=== PATIENT | female | born 2000 | race Hispanic/Latino ===

== ENCOUNTER 2021-11-10 22:00 | Emergency (ER) | payer OTHER ==
--- OUTSIDE RECORDS SUMMARY | 2021-11-10 22:04 | XMS REPORT | Continuity of Care Document ---
:2000 Author Organization [facility] t Address [address] [place] [address] Dr. Knutson [address] [place] [address] Care Team Providers Name Role Phone BEREKET HENLEY Primary Care Physician Unavailable Visit, Aliciachfortino Nurse Attending Clinician Unavailable Marvel Liu Attending Clinician MARVEL CROCKETT Attending Clinician Unavailable JHONATAN HILL Attending Clinician Unavailable Jhonatan Hill MD Attending Clinician FORTUNATO GAN Attending Clinician Unavailable Nurse, [facility] Attending Clinician Unavailable Fortunato Gan MD Attending Clinician Doctor Unassigned, Haskins Attending Clinician Unavailable Payers Payer Name Policy Type Policy Number Effective Date Expiration Date [facility] [id number] 2012 00:00:00 Problems Condition Condition Condition Status Onset Resolution Last Treating Co mments Source Name Details Category Date Date Treatment Clinician Date Encounter Encounter Disease Active 2019-02 Uni vers for for 0-05 [place] of 00 Medical injectable injectable Br anch contracept contracept nilson nilson Overweight Overweight Disease Active 2019-02 U nivers (BMI (BMI 0-05 ity of 25.0-29.9) 25.0-29.9[place] [facility] Screening Screening Disease Active Uni vers examinatio examinatio 09-19 it y of n for STD n [place] ST[place] ([place]ually (sexually 00 Medi kristen transmitte transmitte Br anch d disease) d disease) Depo-Prove Depo-Prove Disease Active U halina aldrich ra 09-19 [place] of [place]son status 00 Hi dical Branch Allergies, Adverse Reactions, Alerts Allergy Allergy Status Severity Reaction(s) Onset Inactive Treating Comm ents Source Name Type Date Date Clinician NO KNOWN Drug Active [facility] ALLERGIE Class ity of S [facility] Social History Social Habit Start Date Stop Date Quantity Comments Source Exposure to 2021-09-05 2021-09-15 Not sure [facility] SARS-CoV-2 00:00:00 11:19:00 [facility] (event) [place] Alcohol intake 2021-08-27 2021-08-27 0 /d [facility] 00:00:00 00:00:00 [facility] Tobacco use and 2017-11-13 2017-11-13 Smokeless tobacco Un iversity of exposure 00:00:00 00:00:00 non-user [facility] Sex Assigned At 2000 2000 Universit y of 00:00:00 00:00:00 [facility] [place] Smoking Status Start Date Stop Date Source Never smoked tobacco [facility] Medications Ordered Filled Start Stop Current Ordering Indication Dosage Frequency Signature Comments Components Source Medication Medication Date Date Medication? Clinician (SIG) Name Name acetaminoph 2021- No 1000mg 1,000 mg, Univers en 08-28 Oral, ity of (TYLENOL) 04:15: 04:20 [place]CE[place] tablet [place] :00 dose, On Medical 1,000 mg 08/27/21 Branc h at 2315, ANDER diphenhydrA 2021- No 25mg 25 mg, Uni vers MINE 08-28 Slow IV ity of (BENADRYL) 04:15: 04:21 Push, [place] injection 00 :00 ONCE, 1 Medical 25 mg dose, On Branch 08/27/21 at 2315, STAT metoclopram 2021- No 10mg 10 mg, Uni vers gi HCl 7-10 07-10 Slow IV ity of (REGLAN) 04:15: 04:21 Push, [place] injection 00 :00 ONCE, 1 Medical 10 mg dose, On Branch 08/27/21 at 2315, ANDER medroxyPROG 2020-02- No [id number] 150mg Univers ESTERone 2-28 -29 ity of (DEPO-PROVE 06:00: 05:59 [place] RA) 00 :00 Medical injection Branch 150 mg medroxyPROG 2020-02- No [id number] 150mg 150 mg, Univers ESTERone 2-28 11-29 Intramuscu ity of (DEPO-PROVE 06:00: 05:59 lar, [place] RA) 00 :00 [id number], Medical injection 4 doses, Branch 150 mg First dose on 02/15/21 at 0000, Last dose on 10/25/21 at 0000, Routine medroxyPROG 2020-02- No [id number] 150mg Univers ESTERone 2-28 11-29 ity of (DEPO-PROVE 06:00: 05:59 [place] RA) 00 :00 Medical injection Branch 150 mg medroxyPROG 2020-02- No [id number] 150mg Univers ESTERone 2-28 11-29 ity of (DEPO-PROVE 06:00: 05:59 [place] RA) 00 :00 Medical injection Branch 150 mg medroxyPROG 2020-02- No [id number] 150mg Univers ESTERone 2-28 11-29 ity of (DEPO-PROVE 06:00: 05:59 [place] RA) 00 :00 Medical injection Branch 150 mg medroxyPROG 2020-02- No [id number] 150mg Univers ESTERone 2-28 11-29 ity of (DEPO-PROVE 06:00: 05:59 [place] RA) 00 :00 Medical injection Branch 150 mg medroxyPROG 2020-02- No [id number] 150mg Univers ESTERone 2-28 11-29 ity of (DEPO-PROVE 06:00: 05:59 [place] RA) 00 :00 Medical injection Branch 150 mg medroxyPROG 2020-02- No [id number] 150mg 150 mg, Univers ESTERone 2-28 11-29 Intramuscu ity of (DEPO-PROVE 06:00: 05:59 mona, Todd ALDRICH) 00 :00 [id number], Medical injection 4 doses, Branch 150 mg First dose on Sun02/15/21 at 0000, Last dose on Sun10/25/21 at 0000, Routine MULTIVITAMI 2018-02 Yes Take by Uni vers N ORAL 0-02 mouth. ity of 14:44: [address] MULTIVITAMI 2018-02 Yes Take by Un zohaib N ORAL 0-02 mouth. ity of 14:44: [address] MULTIVITAMI 2018-02 Yes Take by Uni vers N ORAL 0-02 mouth. ity of 14:44: [address] MULTIVITAMI 2018-02 Yes Take by Uni vers N ORAL 0-02 mouth. ity of 14:44: [address] [facility] Yes Take by Uni vers N ORAL 0-02 mouth. ity of 14:44: [address] MULTIVITAMI 2018-02 Yes Take by Uni vers N ORAL 0-02 mouth. ity of 14:44: [address] Immunizations Ordered Filled Immunization Date Status Comments [facility] e Immunization Name Name [facility] 2021-08-11 Completed University of 00:00:00 [facility] 2021-08-11 Completed University of 00:00:00 [facility] 2021-08-11 Completed University of 00:00:00 [facility] HPV9 2021-08-11 Completed University of 00:00:00 [facility] HPV9 2021-04-06 Completed University of 00:00:00 [facility] HPV9 2021-04-06 Completed University of 00:00:00 [facility] HPV9 2021-04-06 Completed University of 00:00:00 [facility] HPV9 2021-04-06 Completed University of 00:00:00 [facility] HPV9 2021-04-06 Completed University of 00:00:00 [facility] HPV9 2021-04-06 Completed University of 00:00:00 [facility] TDAP 2016-09-19 Completed University of 00:00:00 [facility] HPV9 2016-09-19 Completed University of 00:00:00 [facility] TDAP 2016-09-19 Completed University of 00:00:00 [facility] 2016-09-19 Completed University of 00:00:00 [facility] Branch TDAP 2016-09-19 Completed University of 00:00:00 [facility] HPV9 2016-09-19 Completed University of 00:00:00 [facility] TDAP 2016-09-19 Completed University of 00:00:00 [facility] HPV9 2016-09-19 Completed University of 00:00:00 [facility] TDAP 2016-09-19 Completed University of 00:00:00 [facility] 2016-09-19 Completed University of 00:00:00 [facility] TDAP 2016-09-19 Completed University of 00:00:00 [facility] Branch [facility] 2016-09-19 Completed University of 00:00:00 [facility] Vital Signs Vital Name Observation Time Observation Value Comments Source Systolic blood 2021-08-28 04:25:00 134 mm[Hg] Univer sity of pressure [facility] Diastolic blood 2021-08-28 04:25:00 81 mm[Hg] Unive rsity of [facility] Heart rate 2021-08-28 04:25:00 94 /min [facility] Respiratory rate 2021-08-28 04:25:00 20 /min [facility] Oxygen saturation in 2021-08-28 04:25:00 100 /min [facility] Arterial blood by [facility] Pulse oximetry [place] Body temperature 2021-08-28 01:34:00 36.61 Ivon [facility] Body height 2021-08-28 01:26:00 157.5 cm [facility] Body weight 2021-08-28 01:26:00 61.236 kg [facility] BMI 2021-08-28 01:26:00 24.69 kg/m2 [facility] Systolic blood 2021-08-27 20:08:00 138 mm[Hg] Univer sity of pressure [facility] Diastolic blood 2021-08-27 20:08:00 94 mm[Hg] Unive rsity of pressure [facility] Heart rate 2021-08-27 20:08:00 118 /min [facility] Body temperature 2021-08-27 20:08:00 36.67 Ivon [facility] 2021-08-27 20:08:00 20 /min Univ ersity of [place] [facility] [place] Body height 2021-08-27 20:08:00 154.9 cm Universi ty of [place] [facility] [place] Body weight 2021-08-27 20:08:00 61.372 kg Universi ty of [place] [facility] [place] BMI 2021-08-27 20:08:00 25.56 kg/m2 Universi ty of [facility] Oxygen saturation in 2021-08-27 20:08:00 96 /min University Arterial blood by [facility] Pulse oximetry Branch Systolic blood 2021-08-11 14:08:00 118 mm[Hg] Univer sity of pressure [facility] Diastolic blood 2021-08-11 14:08:00 83 mm[Hg] Unive rsity of [facility] Heart rate 2021-08-11 14:08:00 95 /min Universi ty of [facility] Body temperature 2021-08-11 14:08:00 36.44 Ivon Univ ersity of [facility] Respiratory rate 2021-08-11 14:08:00 18 /min Univ ersity of [facility] [place] Body weight 2021-08-11 14:08:00 65.726 kg Universi ty of [place] [facility] [place] BMI 2021-06-23 14:23:00 26.94 kg/m2 Universi ty of [facility] Systolic blood 2021-06-23 14:23:00 115 mm[Hg] Univer sity of pressure [facility] [place] Diastolic blood 2021-06-23 14:23:00 79 mm[Hg] Unive rsity of pressure [facility] Heart rate 2021-06-23 14:23:00 79 /min Universi ty of [place] [facility] [place] Body temperature 2021-06-23 14:23:00 36.61 Ivon Univ ersity of [facility] Respiratory rate 2021-06-23 14:23:00 20 /min Univ ersity of [facility] Body height 2021-06-23 14:23:00 154.9 cm Universi ty of [place] [facility] [place] Body weight 2021-06-23 14:23:00 64.683 kg Universi ty of [facility] Procedures Procedure Date / Time Performed Performing Clinician Carlos A DALEY-19 (ID NOW RAPID 2021-08-28 04:07:00 Jhonatan Hill [facility] TESTING) [facility] HB ABO GROUPING 2021-08-28 02:46:00 Jhonatan Hill [facility] CBC WITH DIFF 2021-08-28 02:44:00 Jhonatan Hill [facility] POCT TEST 2021-08-28 01:58:00 [facility] 2021-08-28 01:53:00 Jhonatan Hill [facility] COMP. METABOLIC PANEL 2021-08-28 01:53:00 Liz [facility] ([id number]) [facility] URINALYSIS 2021-08-28 01:53:00 Jhonatan Hill [facility] NOTICE OF PRIVACY 2021-08-28 01:18:57 [facility]igned[facility] CONSENT/REFUSAL FOR 2021-08-28 01:18:16 [facility] Name [facility] TREATMENT GARDASIL 9 (HPV 9V) 2021-08-11 14:10:11 [facility] VACCINE [facility] REFERRAL- 2021-07-28 05:01:00 Doctor Unassigned, No [facility] REQUEST/RESPONSE Name [facility] Encounters Start End Encounter Admission Attending Care Care Encounter Source Date/Time Date/Time Type Type Clinicians Facility Department ID 2021-12-08 2021-12-08 Outpatient R [facility] [id number] [facility] 08:30:00 08:30:00 [id number] 2021-12-08 2021-12-08 Outpatient R [facility] [id number] Univers 08:30:00 08:30:00 [facility] 2021-09-15 2021-09-15 Nurse Visit, Bart-Rmchp Nurse [facility] [id number] .[id number] Univers 10:30:00 11:23:51 Visit Marvel Crockett MEDIA EXECUTIVE [id number] [facility] [id number] Jono as MATERNAL [id number] Med ical & CHILD [address] [place] [address] 2021-09-15 2021-09-15 Outpatient R ELAINA [facility] [id number] Univers 10:30:00 10:30:00 MARVEL moore o f [facility] 2021-08-27 2021-08-28 Emergency X AUFDERHEIDE [facility] ERT [id number] Univers 20:22:00 00:17:00 , JHONATAN ity of [facility] 2021-08-27 2021-08-28 Emergency Aufderide [facility] [id number] Univers 20:22:00 00:17:00 , Jhonatan HOLLAND [id number] i ty of [facility] [id number] [id number] [address] 2021-08-27 2021-08-27 [facility] [id number] Univers 14:20:00 15:15:[address] [facility] 2021-08-27 2021-08-27 Nurse Nurse, [facility] [id number] Univers 14:20:00 14:40:00 Visit Narinder [facility] [id number] [facility] [id number] Jono as INESSA?BLEA [phone] [address] MEDICAL OFFICE BUILDING 2021-08-27 2021-08-27 Outpatient R [facility] [id number] Univers 14:20:00 14:20:00 [id number] ity of [facility] 2021-08-27 2021-08-27 [facility] [id number] Univers 14:20:00 14:20:[address] [facility] 2021-08-11 2021-08-11 Nurse Visit, Josuep Nurse [facility] 1.2 .840.114 [id number] Univers 09:00:00 09:13:29 Visit Marvel Crockett MEDIA EXECUTIVE [id number] ity of [facility] [id number] Jono as MATERNAL [phone] [facility] & CHILD [address] [place] [address] 2021-08-11 2021-08-11 Outpatient R [facility] [id number] Univers 09:00:00 09:00:00 [id number] ity of [facility] 2021-08-11 2021-08-11 [facility] [id number] Univers 09:00:00 09:00:00 LAKSHMICARLEEN ity o f [facility] 2021-08-04 2021-08-04 [facility] [id number] Univers 08:30:00 08:30:00 MARVEL haynesy o f [facility] 2021-07-28 2021-07-28 Orders Doctor NANCY [id number] Univers 00:00:00 00:00:00 Only Unassigned, ABUNDIO [id number] ity [facility] [id number] Jono as [id number] [address] 2021-06-23 2021-06-23 Nurse Visit, [facility] Nurse [facility] 1.2 .840.114 [id number] Univers 09:30:00 09:40:58 Visit Marvel Crockett Emelyn MEDIA EXECUTIVE [id number] ity of [facility] [id number] Jono as MATERNAL [id number] [facility] & [address] Results Test Description Test Time Test Comments Results Result Comments Source Type and Screen - ONCE STAT 2021-08-28 03:27:10 Test Item Value Reference Range Interpretation Comme nts ABO & RH (test code = 20) O Positive Pe rformed at [facility] Laboratory Services - [facility] Blood [address] [place], [place] [address]Toll Free: [phone] A No. [id number] IAT (test code = 1185) Negative Perfo rmed at [facility] Laboratory Services - [facility] Blood [address] [place], [place] [address]Toll Free: [phone] A No. [id number] [facility]OLIC PAN[facility] ([id number])2021-08-28 02:42:22 Test Item Value Reference Range Interpretation Comments NA (test code = 141 mmol/L 135-145 7427278681) K (test code = 4.1 mmol/L 3.5-5.0 9457237154) CL (test code = 104 mmol/L 98-108 9513028262) CO2 TOTAL (test code = 23 mmol/L 23-31 0445835886) AGAP (test code = 2-16 6722776946) BUN (test code = 9 mg/dL 7-23 4068182215) GLUCOSE (test code = 93 mg/dL 70-110 6107616909) CREATININE (test code = 0.64 mg/dL 0.50-1.04 7690714893) TOTAL BILI (test code = 0.6 mg/dL 0.1-1.5 8100934722) CALCIUM (test code = 9.3 mg/dL 8.6-10.6 4046410939) T PROTEIN (test code = 8.3 g/dL 6.3-8.2 H 4529420960) ALBUMIN (test code = 5.0 g/dL 3.5-5.0 1202895848) ALK PHOS (test code = 82 U/L 34-122 2751576884) ALTv (test code = 25 U/L 5-35 1742-6) AST(SGOT) (test code = 33 U/L 13-40 9354138270) eGFR (test code = mL/min/1.73m2 7156543519) HERBERT (test code = HERBERT) Association of Glomerular Filtration Rate (GFR) and Staging of Kidney Disease* + --+ --+ ------+| GFR (mL/min/1.73 m2) ?| With Kidney Damage ?| ?Without Kidney Damage+ --------+ --------+ +| ?>90 ?| ?Stage one ?| ? Normal ?+ ---+ ---+ -------+| ?60-89 ?| ?Stage two ?| ? Decreased GFR ? + --+ --+ ------+| ?30-59 ?| ?Stage three ?| ? Stage three ? + --+ --+ ------+| ?15-29 ?| ?Stage four ? | ? Stage four ?+ ---+ ---+ -------+| ?<15 (or dialysis) ? ?| ?Stage five ? | ? Stage five ?+ ---+ ---+ -------+ *Each stage assumes the associated GFR level has been in effect for at least three months. ?Stages 1 to 5, with or without kidney disease, indicate chronic kidney disease. Notes: Determination of stages one and two (with eGFR >59mL/min/1.73 m2) requires estimation of kidney damage for at least three months as defined by structural or functional abnormalities of the kidney, manifested by either:Pathological abnormalities or Markers of kidney damage (including abnormalities in the composition of the blood or urine or abnormalities in imaging tests). Lab Interpretation Abnormal (test code = 89481-9) [facility] 02:42:02 Test Item Value Reference Range Interpretation Comments LIPASE (test code = 1285469242) 130 U/L 0-220 Lab Interpretation (test code = Normal 09969-1) [facility] [id number] 01:58:00 Test Item Value Reference Range Interpretation Comments POCT PREG (test code = 1605) negative On board controls acceptable with positive C Line (test code = 3574) POCT PREG LOT # (test code = 3575) [id number] POCT PREG TEST DATE (test 12-19-2022 code = 3576) Lab Interpretation (test code = Normal 74385-7) [facility]"
[2021-11-10] MEDS ORDERED: LIDOCAINE 1% MPF 5 ML VIAL ONE ×2 (22:57→23:19)
--- NOTE | 2021-11-10 23:38 | ER ---
Nurse's Notes [facility] Name: Johanna Brown Age: 20 yrs Sex: Female : 2000 Arrival Date: 11/10/2021 Time: 22:05 Bed Treatment Private MD: Diagnosis: Laceration without foreign body of left little finger without damage to nail Presentation: 11/10 22:18 Chief complaint: Patient states: I was trying to open something with a knife and I bm7 couldn't get it open and it went through my finger. Coronavirus screen: At this time, the client does not indicate any symptoms associated with coronavirus-19. Ebola Screen: No symptoms or risks identified at this time. Complicating Factors: There are no complicating factors for this patient. Initial Sepsis Screen: Does the patient meet any 2 criteria? No. Patient's initial sepsis screen is negative. Does the patient have a suspected source of infection? No. Patient's initial sepsis screen is negative. Risk Assessment: Do you want to hurt yourself or someone else? Patient reports no desire to harm self or others. Onset of symptoms was November 10, 2021. 22:18 Method Of Arrival: Ambulatory bm7 22:18 Acuity: ALYSON 3 bm7 Triage Assessment: 22:19 General: Appears in no apparent distress. uncomfortable, Behavior is calm, anxious, bm7 crying. Pain: Complains of pain in dorsal aspect of distal phalanx of left little finger, dorsal aspect of middle phalanx of left little finger, palmar aspect of distal phalanx of left little finger, palmar aspect of middle phalanx of left little finger and left little fingernail. EENT: No deficits noted. No signs and/or symptoms were reported regarding the EENT system. Neuro: No deficits noted. Cardiovascular: No deficits noted. Respiratory: No deficits noted. GI: No deficits noted. No signs and/or symptoms were reported involving the gastrointestinal system. : No deficits noted. No signs and/or symptoms were reported regarding the genitourinary system. Derm: No deficits noted. No signs and/or symptoms reported regarding the dermatologic system. Musculoskeletal: No deficits noted. No signs and/or symptoms reported regarding the musculoskeletal system. Injury Description: Laceration sustained to palmar aspect of distal phalanx of left little finger, palmar aspect of middle phalanx of left little finger and palmar aspect of proximal phalanx of left little finger is jagged, 0.5 to 2.5 cm long, bleeding moderately, was sustained less than 30 minutes ago. is bleeding moderately. GRINDER: 22:11 LMP N/A - control method bm7 Historical: - Allergies: 22:19 No Known Allergies; bm7 - Home Meds: 22:19 depot [Active]; bm7 - PMHx: 22:19 None; bm7 - PSHx: 22:19 None; bm7 - Immunization history:: Adult Immunizations unknown, Client reports having NOT received the Covid vaccine. - Social history:: Smoking status: Patient denies any tobacco usage or history of. Vital Signs: 22:11 BP 131 / 80; Pulse 100; Resp 16; Temp 98.3(TE); Pulse Ox 100% on R/A; Weight 58.97 kg bm7 (R); Height 5 ft. 1 in. (154.94 cm); Pain 10/10; 22:11 Body Mass Index 24.56 (58.97 kg, 154.94 cm) bm7 ED Course: 22:05 Patient arrived in ED. dt4 22:08 Yusuf Cesar DO is Attending Physician. ms3 22:11 Arm band placed on right wrist. bm7 22:19 Triage completed. bm7 23:36 Chapincito Mckeon DO is Referral Physician. ms3 Administered Medications: 23:51 Drug: Lidocaine (1 %) 10 ml Volume: 5 ml; Route: Infiltration; tw5 23:51 Drug: boosterix 0.5 ml Route: IM; Site: left deltoid; tw5 Outcome: 23:37 Discharge ordered by . ms3 23:51 Patient left the ED. tw5 Signatures: Yusuf Cesar DO DO ms3 Gabby Neely RN RN bm7 Goldie Simons tw5 Rosalind Pimentel dt4
--- NOTE | 2021-11-10 23:38 | EDPHYS ---
Physician Documentation [facility] Name: Johanna Brown Age: 20 yrs Sex: Female : 2000 Arrival Date: 11/10/2021 Time: 22:05 Bed Treatment Private MD: ED Physician Yusuf Cesar HPI: 11/10 23:37 This 20 yrs old Female presents to ER via Ambulatory with complaints of ms3 Laceration To Hand. 23:37 The patient has a laceration. 20-year-old female with no past medical history presents ms3 for left little finger laceration that occurred 30 minutes prior to arrival while opening an object. Patient states pain is 3/10 and throbbing. Patient denies alleviating or inciting factors. Wound is hemostatic at arrival.. 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 - Social history:: Smoking status: Patient denies any tobacco usage or history of. ROS: 23:37 Constitutional: Negative for fever, and chills. Neck: Negative for injury, pain, and ms3 swelling, Cardiovascular: Negative for chest pain, and palpitations. Respiratory: Negative for shortness of breath, cough, wheezing, and pleuritic chest pain, Abdomen/GI: Negative for abdominal pain, nausea, vomiting, diarrhea, and constipation. 23:37 Skin: Positive for laceration(s). 23:37 All other systems are negative. ms3 Exam: 23:37 Constitutional: This is a well developed, well nourished patient who is awake, alert, ms3 and in no acute distress. Head/Face: Normocephalic, atraumatic. Neck: Trachea midline, no cervical lymphadenopathy. Supple, full range of motion without nuchal rigidity, or vertebral point tenderness. No Meningismus. Chest/axilla: Normal chest wall appearance and motion. Nontender with no deformity. Cardiovascular: Regular rate and rhythm with a normal S1 and S2. No gallops, murmurs, or rubs. Normal PMI, no JVD. No pulse deficits. Respiratory: Lungs have equal breath sounds bilaterally, clear to auscultation and percussion. No rales, rhonchi or wheezes noted. No increased work of breathing, no retractions or nasal flaring. Abdomen/GI: Soft, non-tender, with normal bowel sounds. No distension or tympany. No guarding or rebound. No evidence of tenderness throughout. Neuro: Awake and alert, GCS 15, oriented to person, place, time, and situation. Cranial nerves II-XII grossly intact. Motor strength 5/5 in all extremities. Sensory grossly intact. Cerebellar exam normal. Normal gait. Psych: Awake, alert, with orientation to person, place and time. Behavior, mood, and affect are within normal limits. 23:37 Skin: injury, laceration(s), the wound is approximately 2 cm(s), of the palmar aspect of distal phalanx of left little finger. Vital Signs: 22:11 BP 131 / 80; Pulse 100; Resp 16; Temp 98.3(TE); Pulse Ox 100% on R/A; Weight 58.97 kg bm7 (R); Height 5 ft. 1 in. (154.94 cm); Pain 10/10; 22:11 Body Mass Index 24.56 (58.97 kg, 154.94 cm) bm7 Laceration: 23:33 Wound Repair of 2cm ( 0.8in ) subcutaneous laceration to palmar aspect of distal sb4 phalanx of left little finger. Linear shaped.. Skin/tissue flap noted.. Distal neuro/vascular/tendon intact. Anesthesia: Digital block administered with 2 mls of 1% lidocaine. Wound prep: Simple cleansing with betadine by me. Skin closed with 4 5-0 Prolene using simple sutures and sterile technique. Dressed with Neosporin, bandaid. Patient tolerated well. MDM: 22:22 Patient medically screened. ms3 23:37 Differential diagnosis: superficial laceration, tendon injury, vascular injury. Data ms3 reviewed: vital signs, nurses notes, and as a result, I will discharge patient. Counseling: I had a detailed discussion with the patient and/or guardian regarding: the historical points, exam findings, and any diagnostic results supporting the discharge/admit diagnosis, the need for outpatient follow up, to return to the emergency department if symptoms worsen or persist or if there are any questions or concerns that arise at home. Special discussion: I discussed with the patient/guardian in detail that at this point there is no indication for admission to the hospital. It is understood, however, that if the symptoms persist or worsen the patient needs to return immediately for re-evaluation. ED course: Patient's left small finger sutured without complications. Wound is now hemostatic. Patient to follow-up with Dr. Mckeon in 7 to 10 days for suture removal. Patient understands and agrees with plan. All questions were answered. Return precautions discussed include worsening symptoms, or any other concerns. 11/10 23:33 Order name: Suture Tray at Bedside; Complete Time: 23:42 tw5 Administered Medications: 23:51 Drug: Lidocaine (1 %) 10 ml Volume: 5 ml; Route: Infiltration; tw5 23:51 Drug: boosterix 0.5 ml Route: IM; Site: left deltoid; tw5 Disposition: 23:41 Co-signature as Attending Physician, Yusuf Cesar DO. ms3 Disposition Summary: 11/10/21 23:37 Discharge Ordered Location: Home ms3 Condition: Stable ms3 Diagnosis - Laceration without foreign body of left little finger without damage to nail ms3 Followup: ms3 - With: [place] Mckeon DO - When: 7 - 10 days - Reason: Staple/Suture removal Discharge Instructions: - Discharge Summary Sheet ms3 - Laceration Care, Adult ms3 - Laceration Care, Adult, [id number] ms3 Forms: - Medication Reconciliation Form ms3 - Thank You Letter ms3 - Antibiotic Education ms3 - Prescription Opioid Use ms3 Signatures: Yusuf Cesar DO DO ms3 Gabby Neely, RN RN bm7 Goldie Simons tw5 Shanon Hilario PAVidhi PAKenyaC sb4
[2021-11-10] MEDS ORDERED: TDAP (DIPHTH,PERTUSS(ACELL),TET VAC) 0.5 ML VIAL IMVAC ONE (23:51)
[2021-11-12 11:37] VITALS: BP 131/80; TEMP 98.3; O2SAT 100
== END 2021-11-10 23:51 | disposition home or self-care (01) ==
LOC: ER 22:00
PROC: 0JQK0ZZ Repair Left Hand Subcutaneous Tissue and Fascia, Open Approach (ICD-10-PCS; principal; 2021-11-10)
DX: S61.217A Laceration without foreign body of left little finger without damage to nail, initial encounter (principal)
CPT/HCPCS: 96372; 99282; 12001; J2001 ×2